=== PATIENT | female | born 1945 | race Caucasian/White ===

== ENCOUNTER 2017-11-27 06:49 | Day surgery (SDC) | payer MEDICARE, MEDICAID ==
[2017-11-27] MEDS ORDERED: PROPOFOL 10 MG/ML VIAL IV ONE (06:50)
[2017-11-27] MEDS ORDERED: LIDOCAINE 2% MDV (20MG/ML) 20ML VIAL IV ONE (06:50)
--- NOTE | 2017-11-30 09:10 | Operative Note ---
DATE OF SURGERY: 11/27/2017 SURGEON: Janet Epstein MD OPERATION: COLONOSCOPY. INDICATIONS: This is a 72-year-old female with history of colon polyps who presented for surveillance colonoscopy. POSTOPERATIVE DIAGNOSES: 1. Two 2-3 mm sessile rectal polyps that were removed by cold biopsy forceps. 2. Left-sided colonic diverticulosis. 3. Otherwise normal colon. ANESTHESIA: Sedation is per Anesthesia. Pulse oximetry was monitored throughout the procedure to maintain O2 saturation of 90% or greater. Supplemental oxygen was administered via nasal cannula. Cardiac and vital signs were monitored throughout the duration of the procedure, and they were stable. The procedure of colonoscopy and risks and alternatives of the procedure, including the risk of bleeding and perforation, among others, were explained to the patient who voiced understanding and agreed to have the procedure done. Physical examination was performed, and the patient was found stable for sedation. PROCEDURE: The patient was placed in the left lateral position. Sedation was initiated. A digital rectal exam was performed and showed some mild external hemorrhoids with no palpable rectal masses. An Olympus PCF-180AL colonoscope was then inserted into the rectum under direct visualization. It was advanced to the cecum with moderate difficulty. The difficulty was in the poor light source that precluded complete evaluation of the colon. The colonoscope was then withdrawn while carefully examining the colonic mucosal surfaces. No other lesions were noted. In the rectum, retroflexion was performed and grade 1 internal hemorrhoids were noted and there were two 2-3 mm sessile polyps that were noted and were removed by cold biopsy forceps. The colonoscope was then withdrawn and the procedure was terminated. The patient tolerated the procedure well without any immediate complications. She remained with stable vital signs and was transferred to the recovery room. RECOMMENDATIONS: 1. The patient should be on a high-fiber diet. 2. The patient is to have a repeat colonoscopy for surveillance in 3 or 5 years. Thank you for allowing me to participate in the care of your patient. CC: MOIRA MONTENEGRO MD, FACP [facility]
== END 2017-11-27 09:02 | disposition home or self-care (01) ==
LOC: HOP 06:49
PROVIDERS: ATTEND Internal Medicine Gastroenterology
DX: Z12.11 Encounter for screening for malignant neoplasm of colon (principal); Z86.010 Personal history of colon polyps; K62.1 Rectal polyp; K57.30 Diverticulosis of large intestine without perforation or abscess without bleeding; E78.00 Pure hypercholesterolemia, unspecified; I10 Essential (primary) hypertension

== ENCOUNTER 2019-12-03 18:38 | Emergency (ER) | payer MEDICARE, MEDICAID ==
[2019-12-03] MEDS ORDERED: HYDROMORPHONE HCL 2 MG/ML VIAL IVP ONE ×2 (19:06→21:02)
--- NOTE | 2019-12-03 20:14 | Emergency Department Record ---
History of Present Illness - General Chief Complaint: Back Pain/Injury Stated Complaint: BACK PAIN Time Seen by Provider: 12/03/19 18:42 Source: Patient, Family Mode of Arrival: Wheelchair Limitations: No limitations - History of Present Illness Initial Comments: pt here for intractable back pain. she was recently found to have mets to her liver and back that have not been biopsied yet. she was started on a fentynal patch but it is not helping. she had a pet scan today that has not been read. she had an abd ct 11/17 which originally showed the lesions MD Complaint: Back pain -: Hour(s) Similar Symptoms Previously: Yes Radiation: None Severity: Severe Severity scale (1-10): 9 Quality: Aching Consistency: Constant, Getting worse Improves With: None Worsens With: Movement Context: Other Associated Symptoms: Difficulty walking, Weakness Treatments Prior to Arrival: Acetaminophen, Other medications, Prescription analgesics - Related Data Home Medications Medication Instructions Recorded Confirmed Last Taken Acetaminop W/ Codeine 300/60Mg 1 udtab PO Q4HR 12/03/19 12/03/19 12/03/19 [Acetaminophen-Cod #4 Tablet] Cholecalciferol (Vitamin D3) 50,000 unit PO DAILY 12/03/19 12/03/19 12/03/19 [Vitamin D3] Diltiazem HCl [Diltiazem ER] 180 mg PO BID 12/03/19 12/03/19 12/03/19 Fentanyl 0.5 patch TD Q72H 12/03/19 12/03/19 12/03/19 Lovastatin 40 mg PO DAILY 12/03/19 12/03/19 12/03/19 Metoprolol Tartrate 25 mg PO BID 12/03/19 12/03/19 12/03/19 Potassium Chloride [Klor-Con 10] 10 meq PO BID 12/03/19 12/03/19 12/03/19 Allergies Allergy/AdvReac Type Severity Reaction Status Date / Time ibuprofen [From Motrin] AdvReac NAUSEA AND Verified 11/16/17 10:02 VOMITING Travel Screening - Travel/Exposure Within Last 30 Days Have you traveled within the last 30 days?: No - Travel Symptoms Symptom Screening: Fatigue Review of Systems Reviewed: No additional complaints except as noted below Constitutional: Reports: As per HPI, Weight change. Denies: Chills, Fever, Malaise, Night sweats, Weakness Eyes: Reports: As per HPI. Denies: Eye discharge, Eye pain, Photophobia, Vision change ENT: Reports: As per HPI. Denies: Congestion, Dental pain, Ear pain, Epistaxis, Hearing loss, Throat pain Respiratory: Reports: As per HPI. Denies: Cough, Dyspnea, Hemoptysis, Stridor, Wheezes Cardiovascular: Reports: As per HPI. Denies: Arrhythmia, Chest pain, Dyspnea on exertion, Edema, Murmurs, Orthopnea, Palpitations, Paroxysmal nocturnal dyspnea, Rheumatic Fever, Syncope Endocrine: Reports: As per HPI. Denies: Fatigue, Heat or cold intolerance, Polydipsia, Polyuria Gastrointestinal: Reports: As per HPI. Denies: Abdominal pain, Constipation, Diarrhea, Hematemesis, Hematochezia, Melena, Nausea, Vomiting Genitourinary: Reports: As per HPI. Denies: Abnormal menses, Discharge, Dyspareunia, Dysuria, Frequency, Hematuria, Incontinence, Retention, Urgency Musculoskeletal: Reports: As per HPI, Back pain. Denies: Arthralgia, Gout, Joint swelling, Myalgia, Neck pain Skin: Reports: As per HPI. Denies: Bruising, Change in color, Change in hair/nails, Lesions, Pruritus, Rash Neurological: Reports: As per HPI. Denies: Abnormal gait, Confusion, Headache, Numbness, Paresthesias, Seizure, Tingling, Tremors, Vertigo, Weakness Psychiatric: Reports: As per HPI. Denies: Anxiety, Auditory hallucinations, Depression, Homicidal thoughts, Suicidal thoughts, Visual hallucinations Hematological/Lymphatic: Reports: As per HPI. Denies: Anemia, Blood Clots, Easy bleeding, Easy bruising, Swollen glands Past Medical History - SOCIAL HISTORY Smoking Status: Current every day smoker Alcohol Use: None Drug Use: None - RESPIRATORY Hx Respiratory Disorders: No - CARDIOVASCULAR Hx Cardio Disorders: Yes Hx Hypertension: Yes Comment:: high cholesterol - NEURO Hx Neuro Disorders: No - GI Hx GI Disorders: Yes Hx of Polyps: Yes - Hx Genitourinary Disorders: No - ENDOCRINE Hx Endocrine Disorders: No - MUSCULOSKELETAL Hx Musculoskeletal Disorders: Yes Hx Arthritis: Yes Hx Osteoporosis: Yes - PSYCH Hx Psych Problems: No - HEMATOLOGY/ONCOLOGY Hx Hematology/Oncology Disorders: Yes Hx Cancer: Yes (new dx, current problem) Family Medical History Any Significant Family History?: No Family Hx Comment (NOT TO BE USED IN PLACE OF ITEMS BELOW): denies Physical Exam - General General Appearance: Alert, Oriented x3, Cooperative, Mild distress - Head Head exam: Normal inspection - Eye Eye exam: Normal appearance, PERRL, EOMI Pupils: Normal accommodation - ENT ENT exam: Normal exam, Mucous membranes moist, Normal external ear exam, Normal orophraynx Ear exam: Normal external inspection. negative: External canal tenderness Nasal Exam: Normal inspection. negative: Discharge, Sinus tenderness Mouth exam: Normal external inspection, Tongue normal Teeth exam: Normal inspection. negative: Dental caries Throat exam: Normal inspection. negative: Tonsillar erythema, Tonsillar exudate - Neck Neck exam: Normal inspection, Full ROM. negative: Tenderness - Respiratory Respiratory exam: Normal lung sounds bilaterally. negative: Respiratory distress - Cardiovascular Cardiovascular Exam: Regular rate, Normal rhythm, Normal heart sounds - GI/Abdominal GI/Abdominal exam: Soft, Normal bowel sounds. negative: Tenderness - Rectal Rectal exam: Deferred - exam: Deferred - Extremities Extremities exam: Normal inspection, Full ROM, Normal capillary refill. negat ryan: Tenderness - Back Back exam: Reports: Paraspinal tenderness, Tenderness, Vertebral tenderness. Denies: Full ROM, Muscle spasm, Rash noted - Neurological Neurological exam: Alert, Normal gait, Oriented X3, Reflexes normal - Psychiatric Psychiatric exam: Normal affect, Normal mood - Skin Skin exam: Dry, Intact, Normal color, Warm Course Vital Signs 12/03/19 12/03/19 19:06 19:15 Temperature 97.6 F Pulse Rate [ 77 Left] Respiratory 16 Rate Blood Pressure 148/134 168/100 [Left Arm] Pulse Ox 94 L - Reevaluation(s) Reevaluation #1: 12/03/19 22:24 ct show obvious progression of lesions and extensive involvement of spine Reevaluation #2: 12/03/19 22:26 d/w dr candelario and kristin Medical Decision Making - Lab Data Result diagrams: 12/03/19 19:30 12/03/19 19:30 Disposition Disposition: Transfer Clinical Impression: 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, 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 Disposition: Acute Care Hospital Transfer Transfer To: [facility] Reason For Transfer: needs oncologist and treatments Accepting Physician: dr foster Time Discussed w/Accepting Physician: 22:24 Forms: Patient Portal Access Quality - Quality Measures Quality Measures: N/A - Blood Pressure Screening Does Patient Have Any of the Following: No Blood Pressure Classification: Pre-Hypertensive BP Reading Systolic Measurement: 154 Diastolic Measurement: 88 Screening for High Blood Pressure: < Pre-Hypertensive BP, F/U Documented > [G8950] Pre-Hypertensive Follow-up Interventions: Follow-up with rescreen every year.
--- NOTE | 2019-12-03 20:31 | CT SCAN REPORT ---
EXAMINATION: CT Lumbar Spine without Contrast EXAM DATE: 12/03/2019 8:18 PM TECHNIQUE: Standard protocol CT images were performed of the lumbar spine without contrast. Sagittal and coronal 2-D images were reconstructed. INDICATION: pain COMPARISON: CT abdomen and pelvis: 11/17/2019 ENCOUNTER: Not applicable FINDINGS: There is some coarse linear scarring and atelectasis in the lung bases. The heart is mildly enlarged. There are multiple solid hypodense hepatic masses. A mass in the medial segment the left lobe measure s up to 6.0 cm. This lesion measures 4.7 cm in the same dimension on 11/17/2019. A mass in the medial aspect of the right lobe measures 3.7 cm. This measured 3.1 cm in the same dimension on 11/17/2019. Mo derate to severe sigmoid diverticulosis is noted. There is abnormal paraspinal soft tissue along the right aspect of T11 measuring 3.0 x 1.3 cm in AP a nd transverse dimensions. There is a lytic destructive lesion involving much of the vertebral body. T here are subtle lucencies compatible with pathologic fracture through this vertebral body. There is a subtle lytic area in the left anterior aspect of T12 measuring 7 mm. There is a destructiv e mass at L1. There is a mass involving the left pedicle and extending into the posterior elements me asuring 4.0 x 2.0 cm in AP and transverse dimensions. This mass mildly encroaches upon the left aspec t of the thecal sac. A mass which destroys the spinous process measures 3.5 x 4.8 cm in AP and transv erse dimensions measuring 2.1 x 3.7 cm on 11/17/2019. There is lytic destruction involving the posterior aspect of the L2 vertebral body. There is a cortic al break involving the superior endplate with mild compression of the posterior aspect. The mass erod es the posterior margin but a true body and has some mass encroachment on the anterior aspect of the spinal canal. There is lytic destruction involving the left pedicle and extending into the base of th e transverse process. Is subtle increased lucency involving the right aspect of L3 likely with metastatic lytic involvement . There is no cortical breakthrough. There are similar subtle increased lucency of the body of L4. Th ere is no obvious bony destruction. There are laminectomy defects at L4 and L5. There are facet degen erative changes at these levels. There is some subtle lucency involving the medial and superior aspect of the left ilium but without a definite destructive lesion. There is some increased soft tissue density involving the left sacrum m easuring 2.2 x 2.8 cm in AP and transverse dimensions compatible with a metastasis. IMPRESSION: 1. There is bony metastatic disease throughout the lower thoracic and the lumbar spine as detailed ab ove. There has been some obvious progression of metastatic disease since that recent comparison study . 2. Pathologic fracture involving the superior endplate of L2 is noted to be new. 3. Pathologic fracture and progressive lytic destruction of T11 with a progressive right paraspinal m ass. 4. There is metastatic disease in the liver. Dominant masses as measured have significantly increased since the recent comparison study dated 11/17/2019. Dictated by: Stan Milan MD on 12/03/2019 8:18 PM. .
[2019-12-03] MEDS ORDERED: ONDANSETRON HCL IV 4 MG/2 ML VIAL IVP ONE (21:15)
[2019-12-03 21:36] LABS: ABSOLUTE NEUTROPHIL COUNT 5.98; HEMATOCRIT 43.3 % (35.0-47.0); HEMOGLOBIN 14.3 gm/dl (11.6-16.0); MEAN CELL VOLUME 92.3 fl (81-97); MEAN CORPUSCULAR HEMOGLOBIN 30.5 pg (27-33); MEAN PLATELET VOLUME 10.8 fl (7.4-10.4); PLATELET COUNT 294 K/uL (130-400); RED BLOOD COUNT 4.69 M/uL (3.80-5.40); WHITE BLOOD COUNT W/O DIFF 9.5 K/uL (4.2-12.2)
[2019-12-03 21:45] LABS: BLOOD UREA NITROGEN 11 mg/dL (8-23); CREATININE 0.4 mg/dL (0.5-0.9); EST GLOMERULAR FILTRATION RATE > 60 mL/min
[2019-12-03 21:46] LABS: TOTAL PROTEIN 7.2 g/dL (6.6-8.7)
[2019-12-03 21:48] LABS: GLUCOSE,RANDOM 87 mg/dL (74-109)
[2019-12-03 21:50] LABS: ALT/SGPT 20 U/L (<33)
[2019-12-03 21:51] LABS: ALBUMIN 3.6 g/dL (4.0-5.0); ALKALINE PHOSPHATASE 103 U/L (35-104); ANISOCYTOSIS 1+; AST/SGOT 53 U/L (10.0-35.0); PLATELET ESTIMATE NORMAL (NORMAL)
[2019-12-03] MEDS ORDERED: DEXAMETHASONE SOD PHOSPHATE 10MG/ML VIAL IVP ONE (22:13)
== END 2019-12-03 22:42 | disposition short-term general hospital (02) ==
LOC: ER 18:38
DX: C80.1 Malignant (primary) neoplasm, unspecified (principal); C79.51 Secondary malignant neoplasm of bone; C78.7 Secondary malignant neoplasm of liver and intrahepatic bile duct; R53.1 Weakness; R26.2 Difficulty in walking, not elsewhere classified; I10 Essential (primary) hypertension; F17.210 Nicotine dependence, cigarettes, uncomplicated
CPT/HCPCS: 72131; 80053; 85027; 96374; 96375; 96376; 99285; J2405